=== PATIENT | male | born 1950 ===

== ENCOUNTER 2022-06-28 05:25 | Day surgery (SDC) | payer OTHER ==
[~2022-06-28] VITALS: Ht 180.3 cm; Wt 81.6 kg
[~2022-06-28 05:25] MED LIST: ARICEPT5 MG PO; CLONAZEPAM1 M1 PO; DEPAKOTE ER500 MG PO; HORIZANT300 MG; LIPITOR20 MG PO; LYVISPAH10 MG PO; NOXIFOL-D32500 UNIT PO; TAMS0.4C PO; VITAMIN B122500 MCG
== END 2022-06-28 16:45 | disposition home or self-care (01) ==
LOC: CIR.AMB 05:25
PROVIDERS: ATTEND Colon & Rectal Surgery
DX: K60.0 Acute anal fissure (principal); K59.09 Other constipation; Z20.822 Contact with and (suspected) exposure to COVID-19; I10 Essential (primary) hypertension; G47.33 Obstructive sleep apnea (adult) (pediatric)

== ENCOUNTER 2024-02-27 07:42 | Day surgery (SDC) | payer OTHER ==
[~2024-02-27] VITALS: Ht 180.3 cm; Wt 92.1 kg
[~2024-02-27 07:42] MED LIST changes: +COZAAR25 MG PO; +VENLAFAXINE H37.5 M2 PO
[2024-02-27] MEDS ORDERED: CEFTRIAXONE SODIUM 2,000 MG VIAL ONE (09:05)
[2024-02-27] MEDS ORDERED: METRONIDAZOLE/SODIUM CHLORIDE 500 MG/100 ML PIGGYBACK IV ONE (09:05)
[2024-02-27] MEDS ORDERED: HEMOSTATIC MATRIX 1 KIT KIT TOP ONE (10:56)
[2024-02-27] MEDS ORDERED: DIBUCAINE 30 GM TUBE ONE (10:56)
[2024-02-27] MEDS ORDERED: BUPIVACAINE HCL/Mpf 0.5% 10ML VIAL ONE (10:56)
[2024-02-27] MEDS ORDERED: CHLORHEXIDINE GLUCONATE 120 ML BOTTLE TOP ONE (10:57)
== END 2024-02-28 18:00 | disposition home or self-care (01) ==
LOC: CIR.AMB 07:42
PROVIDERS: ATTEND Colon & Rectal Surgery
DX: K60.3 Anal fistula (principal); K60.2 Anal fissure, unspecified; K92.2 Gastrointestinal hemorrhage, unspecified; K59.09 Other constipation; Z91.041 Radiographic dye allergy status; I10 Essential (primary) hypertension; F32.A Depression, unspecified; E78.00 Pure hypercholesterolemia, unspecified; R06.81 Apnea, not elsewhere classified; R00.1 Bradycardia, unspecified